=== PATIENT | female | born 1980 | race American Indian/Alaskan Native ===

== ENCOUNTER 2018-12-19 08:34 | Emergency (ER) | payer SELFPAY ==
[2018-12-19 08:48] VITALS: BP 116/71
[2018-12-19 09:16] LABS: Basophils % (Auto) 0.2 % (0.0-1.8); Eosinophils # (Auto) 0.2 K/mm3 (0.0-0.4); Eosinophils % (Auto) 2.6 % (0.0-4.3); Hematocrit 36.4 % (30.3-42.9); Hemoglobin 12.2 gm/dl (10.1-14.3); Lymphocytes # (Auto) 1.5 K/mm3 (1.2-5.4); Lymphocytes % (Auto) 20.1 % (13.4-35.0); Mean Corpuscular HGB Conc 34 % (30-34); Mean Corpuscular Volume 90 fl (79-97); Monocytes # (Auto) 0.5 K/mm3 (0.0-0.8); Monocytes % (Auto) 6.3 % (0.0-7.3); Platelet Count 288 K/mm3 (140-440); Red Blood Count 4.06 M/mm3 (3.65-5.03); Red Cell Distribution Width 13.1 % (13.2-15.2)
[2018-12-19] MEDS ORDERED: ZOFRAN IV ONE (09:29)
[2018-12-19] MEDS ORDERED: NACL 0.9% 1000 ML 1,000 ML IV ONE (09:29)
--- NOTE | 2018-12-19 09:32 | Emergency Department Report ---
ED General Adult HPI - General Chief complaint: Nausea/Vomiting/Diarrhea Stated complaint: DIARRHEA/FATIQUE/? Time Seen by Provider: 12/19/18 09:26 Source: patient Mode of arrival: Ambulatory Limitations: No Limitations - History of Present Illness Initial comments: Patient is 38 years old female with no significant past medical history. Patien t is 4 para 2 with one miscarriage. Patient presented to the ER complaining of abdominal pain, crampy in nature, started yesterday. Patient is also complaining of diarrhea. Patient denied any vaginal bleeding or vaginal discharge. Patient does not have any care so far. She stated that her last menstrual period was 08/31/2018. - Related Data Allergies Allergy/AdvReac Type Severity Reaction Status Date / Time No Known Allergies Allergy Unverified 12/19/18 08:48 ED Review of Systems ROS: Stated complaint: DIARRHEA/FATIQUE/? Other details as noted in HPI Comment: All other systems reviewed and negative Constitutional: denies: chills, fever Respiratory: denies: cough, shortness of breath, SOB with exertion Cardiovascular: denies: chest pain, palpitations Gastrointestinal: abdominal pain, nausea, diarrhea. denies: vomiting, constipation, hematemesis, melena, hematochezia Genitourinary: denies: urgency, discharge Neurological: denies: headache, weakness, numbness, paresthesias, confusion ED Past Medical Hx - Past Medical History Previous Medical History?: No - Surgical History Past Surgical History?: No - Social History Smoking Status: Never Smoker ED Physical Exam - General Limitations: No Limitations General appearance: alert, in no apparent distress - Head Head exam: Present: atraumatic, normocephalic, normal inspection - Eye Eye exam: Present: normal appearance - ENT ENT exam: Present: mucous membranes dry - Neck Neck exam: Present: normal inspection, full ROM. Absent: tenderness, meningism us, lymphadenopathy, thyromegaly - Respiratory Respiratory exam: Present: normal lung sounds bilaterally - Cardiovascular Cardiovascular Exam: Present: regular rate, normal rhythm, normal heart sounds - GI/Abdominal GI/Abdominal exam: Present: soft, normal bowel sounds. Absent: distended, tenderness, guarding, rebound, rigid, organomegaly, mass, bruit, pulsatile mass, hernia - Extremities Exam Extremities exam: Present: normal inspection, full ROM, normal capillary refill. Absent: pedal edema, calf tenderness - Back Exam Back exam: Present: normal inspection, full ROM. Absent: CVA tenderness (R), CVA tenderness (L), muscle spasm, paraspinal tenderness - Neurological Exam Neurological exam: Present: alert, oriented X3, CN II-XII intact, normal gait - Psychiatric Psychiatric exam: Present: normal mood - Skin Skin exam: Present: warm, intact, normal color ED Course Vital Signs 12/19/18 08:47 Temperature 98.2 F Pulse Rate 86 Respiratory 16 Rate Blood Pressure 116/71 O2 Sat by Pulse 100 Oximetry ED Medical Decision Making - Lab Data Result diagrams: 12/19/18 09:02 12/19/18 09:02 - Radiology Data Radiology results: report reviewed - Medical Decision Making Patient received Zofran and normal saline. Patient stated that she is feeling much better. Labs reviewed and is unremarkable except for positive test. Patient had an ultrasound showed 16 weeks intrauterine with no complication. Patient given my [employer] SUPERVISOR to follow-up. Patient advised to return to the ER if symptoms are not improved. Critical care attestation.: If time is entered above; I have spent that time in minutes in the direct care of this critically ill patient, excluding procedure time. ED Disposition Clinical Impression: Abdominal pain affecting , Nausea/vomiting in Disposition: DC-01 TO HOME OR SELFCARE Is pt being admited?: No Condition: Stable Instructions: Abdominal Pain in (ED), Acute Nausea and Vomiting (ED) Referrals: MATTHIEU FLORES MD [Primary Care Provider] - 3-5 Days [facility] [Provider Group] - 3-5 Days
[2018-12-19 09:37] LABS: Alanine Aminotransferase 10 units/L (7-56); Albumin 3.7 g/dL (3.9-5); BUN/Creatinine Ratio 6; Blood Urea Nitrogen 4 mg/dL (7-17); Calcium 8.9 mg/dL (8.4-10.2); Hemolysis Index 2
[2018-12-19 09:48] LABS: Bacteria,Urine 1+ /HPF (Negative); Bilirubin,Urine NEG (Negative); Blood,Urine NEG (Negative); Color,Urine Yellow (Yellow); Urobilinogen,Urine < 2.0 mg/dL (<2.0)
--- NOTE | 2018-12-19 11:57 | Ultrasound Report ---
OB ULTRASOUND >= 14 WEEKS FETUS INDICATION: abdominal pain, COMPARISON: None FINDINGS: A single gestation intrauterine is present with transverse head to maternal right presentat ion. The placenta is anterior, grade 0 and free of the cervical os. heart tones measure 146 bp m. Qualitative amniotic fluid volume is within normal limits. The cervix measures 4.6 cm and is closed. anatomical survey was not performed. Biparietal diameter is 3.5 cm which equals 16 weeks 5 days. Head circumference is 12.8 cm which equals 16 weeks 3 days. Abdominal circumference is 9.4 cm which equals 15 weeks 4 days. Femur length is 2.1 cm which equals 16 weeks 2 days. Overall estimated sonographic age is 16 weeks 2 days. EDC: 06/03/2019. HC/AC ratio: 1.36 Cephalic index: 86.7 Estimated weight 83 g. IMPRESSION: Viable, single intrauterine as described. No acute abnormality is detected. Signer Name: Yazan Roberts Jr, MD Signed: 12/19/2018 11:53 AM Workstation Name: [id number]
== END 2018-12-19 12:36 | disposition home or self-care (01) ==
LOC: ED 08:34
DX: O26.892 Other specified pregnancy related conditions, second trimester (principal); R10.2 Pelvic and perineal pain; O21.8 Other vomiting complicating pregnancy; Z3A.16 16 weeks gestation of pregnancy
CPT/HCPCS: 36415; 76805; 80053; 81001; 84702; 85025; 96361; 96374; 99284; J2405; J7030

== ENCOUNTER 2019-06-05 11:02 | Outpatient (CLI) | payer SELFPAY ==
[2019-06-05 11:42] VITALS: BP 120/81
[2019-06-05 12:07] LABS: Bilirubin,Urine NEG (Negative); Blood,Urine NEG (Negative); Color,Urine Yellow (Yellow); Urobilinogen,Urine < 2.0 mg/dL (<2.0)
[2019-06-05] MEDS ORDERED: ACETAMINOPHEN 500 MG TAB PO ONE (12:58)
[2019-06-05 13:05] LABS: Basophils % (Auto) 0.4 % (0.0-1.8); Eosinophils # (Auto) 0.1 K/mm3 (0.0-0.4); Eosinophils % (Auto) 1.7 % (0.0-4.3); Hematocrit 36.2 % (30.3-42.9); Hemoglobin 12.3 gm/dl (10.1-14.3); Lymphocytes # (Auto) 1.4 K/mm3 (1.2-5.4); Mean Corpuscular HGB Conc 34 % (30-34); Mean Corpuscular Volume 92 fl (79-97); Monocytes # (Auto) 0.6 K/mm3 (0.0-0.8); Monocytes % (Auto) 8.5 % (0.0-7.3); Platelet Count 250 K/mm3 (140-440); Red Blood Count 3.93 M/mm3 (3.65-5.03); Red Cell Distribution Width 13.5 % (13.2-15.2)
--- NOTE | 2019-06-05 14:33 | Ultrasound Report ---
US OB follow up INDICATION / CLINICAL INFORMATION: ALLEY/EFW. COMPARISON: 12/19/2018 FINDINGS: Viable single intrauterine gestation in cephalic presentation. heart rate 1 49 bpm The anterior placenta is free of the os with no evidence of abruption. The ALLEY is 12.3 measurements are consistent with a 39 week 4 day intrauterine gestation. Signer Name: Tirso Jamison MD Signed: 06/05/2019 2:28 PM Workstation Name: [id number]
[2019-06-05] MEDS: LACTATED RINGERS 1,000 ML IV SCH ×2 (14:43→14:44)
--- NOTE | 2019-06-05 17:04 | Ultrasound Report ---
ULTRASOUND BIOPHYSICAL PROFILE INDICATION / CLINICAL INFORMATION: well being. COMPARISON: None available. FINDINGS: BREATHING MOVEMENT = 2 GROSS BODY MOVEMENT = 2 TONE = 2 QUALITATIVE AMNIOTIC FLUID VOLUME = 2 TOTAL BIOPHYSICAL SCORE = 10/13 HEART RATE (beats per minute): 137 IMPRESSION: 1. biophysical profile = 10/13 Signer Name: Rohan Roblero MD Signed: 06/05/2019 5:00 PM Workstation Name: [id number]
[2019-06-05 17:34] LABS: Hepatitis C Virus Antibody Non-Reactive (NonReactive)
== END 2019-06-05 17:06 | disposition home or self-care (01) ==
LOC: TRG 11:02
PROVIDERS: ATTEND Obstetrics & Gynecology
DX: O26.853 Spotting complicating pregnancy, third trimester (principal); O42.92 Full-term premature rupture of membranes, unspecified as to length of time between rupture and onset of labor; O09.523 Supervision of elderly multigravida, third trimester; W19.XXXA Unspecified fall, initial encounter; Z3A.39 39 weeks gestation of pregnancy; Y93.89 Activity, other specified; Y92.89 Other specified places as the place of occurrence of the external cause; Y99.8 Other external cause status
CPT/HCPCS: 36415; 59025; 76816; 76819; 81001; 85025; 86592; 86706; 86762; 86803; 96360; 96361; J7120

== ENCOUNTER 2019-06-07 10:56 | Inpatient (IN) | payer OTHER ==
[2019-06-07] MEDS ORDERED: LACTATED RINGERS 1,000 ML ONE ×2 (11:24→16:35)
--- NOTE | 2019-06-07 12:14 | Ultrasound Report ---
LIMITED OBSTETRIC ULTRASOUND HISTORY: Assess fluid. COMPARISON: 06/05/2019 TECHNIQUE: Limited OB ultrasound performed. FINDINGS: Gestation: Lai Monochorionic monoamniotic intrauterine fetus. Placenta: anterior location and free of the internal cervical os. Presentation: Transverse with the head to maternal left. Amniotic Fluid Index: 14.4 cm Cardiac activity is regular rate at149 beats per minute. A survey was not performed. Estimated gestational age based on clinical history/previous ultrasound: 39 weeks 5 days with SONNY 06/08 IMPRESSION: 1. Single living intrauterine at approximately 39 weeks 5 days with no significant abnormal ity. 2. Normal amniotic fluid volume. Signer Name: Ranjeet Spencer MD Signed: 06/07/2019 12:10 PM Workstation Name: [id number]
[2019-06-07] MEDS ORDERED: FAMOTIDINE 20 MG/2 ML INJ IV ONE ×2 (12:52→12:54)
[2019-06-07] MEDS ORDERED: BICITRA ORAL LIQD 30ML PO ONE ×2 (12:52→12:54)
[2019-06-07] MEDS ORDERED: METOCLOPRAMIDE 10 MG/2 ML INJ IV ONE ×2 (12:52→12:54)
--- NOTE | 2019-06-07 12:58 | History and Physical Report ---
History of Present Illness Date of examination: 06/07/19 (Pt for rpt for malpresentation and labor) Date of admission: 06/07/2019 Chief complaint: I've been having contractions and I'm leaking fluids. History of present illness: EDC Confirmation: 06/10/2019 Gestational Age: 29 5/7 weeks Past History : 3 Term Births: 2 Premature Births: 0 Living Children: 2 Para: 2 Mult. Births: 0 Prev : 1 Prev. attempt? 0 Aborta: 0 Elect. Ab: 0 Spont. 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 ETOH/Drugs/smoking Infection History Hx of STD: none HIV Risk Eval: low risk Hepatitis B Risk Eval: low risk Genetic History ADVANCED MATERNAL AGE Congenital Heart Defect: Mom: no Dad: no Javier Disease: Mom: no Dad: no Thalassemia Mom: no Dad: no Neural Tube Defect Mom: no Dad: no Down's Syndrome Mom: no Dad: no Lenny-Sachs Mom: no Dad: no Sickle Cell Disease/Trait Mom: no Dad: no Hemophilia Mom: no Dad: no Muscular Dystrophy Mom: no Dad: no Cystic Fibrosis Mom: no Dad: no [place] Chorea Mom: no Dad: no Mental Retardation Mom: no Dad: no Fragile X Mom: no Dad: no Other Genetic/Chromosomal Disorder Mom: no Dad: no Child w/other defect Mom: no Dad: no Enviromental Exposures Xray Exposure: no Medication, drug, or alcohol use since LMP: no Chemical/Other Exposure: no Exposure to Cat Liter: no Hx of Parvovirus (Fifth Disease): no Occupational Exposure to Children: none Current Allergies (reviewed today): No known allergies Past History Past Medical History: no pertinent history Past Surgical History: section Family/Genetic History: none Social history: - Obstetrical History Expected Date of Delivery: 06/10/19 Actual Gestation: 39 Week(s) 4 Day(s) : 3 Para: 2 Hx # Term Pregnancies: 2 Number of Pregnancies: 0 Spontaneous Abortions: 0 Induced : 0 Number of Living Children: 2 Medications and Allergies Allergies Allergy/AdvReac Type Severity Reaction Status Date / Time No Known Allergies Allergy Verified 06/05/19 11:23 Active Meds: Active Medications Citric Acid/Sodium Citrate (Bicitra) 30 ml PO ONCE ONE Stop: 06/07/19 12:55 Famotidine (Pepcid) 20 mg IV ONCE ONE Stop: 06/07/19 12:55 Oxytocin/Sodium Chloride (Pitocin/Ns 20 Unit/1000ml Drip) 20 units in 1,000 mls @ 0 mls/hr IV TITR COSMO Lactated Ringer's (Lactated Ringers) 1,000 mls @ 2,250 mls/hr IV PREOP COSMO Stop: 06/08/19 13:27 Cefazolin Sodium (Ancef/Sterile Water 2 Gm/20 Ml) 2 gm in 20 mls @ 80 mls/hr IV PREOP NR; Protocol Metoclopramide HCl (Reglan) 10 mg IV ONCE ONE Stop: 06/07/19 12:55 Review of Systems All systems: negative - Vital Signs Vital signs: Vital Signs Pulse BP 91 H 117/77 06/07/19 11:17 06/07/19 11:17 Temp Pulse Resp BP Pulse Ox 98.6 F 81 20 117/77 98 06/07/19 11:45 06/07/19 12:55 06/07/19 11:45 06/07/19 11:45 06/07/19 12:55 - Physical Exam Breasts: Positive: deferred Cardiovascular: Regular rate, Normal S1, Normal S2 Lungs: Positive: Normal air movement Abdomen: Positive: normal appearance, soft, normal bowel sounds. Negative: distention, tenderness Genitourinary (Female): Positive: normal external genitalia, normal perenium Vulva: both: normal Vagina: Positive: normal moisture. Negative: discharge Cervix: Negative: lesion, discharge Uterus: Positive: normal size, normal contour Anus/Rectum: Positive: normal perianal skin, heme negative. Negative: rectal mass, hemorrhoids Extremities: Positive: normal Deep Tendon Reflex Grade: Normal +2 - Obstetrical FHR: auscultation normal, category 1 Uterine Contraction Monitor Mode: External Cervical Dilatation: 0.5 (No Evidence of SROM) Cervical Effacement Percentage: 50 station: -3 Uterine Contraction Pattern: Regular Uterine Tone Measurement Phase: Resting Uterine Contraction Intensity: Mild Results Result Diagrams: 06/07/19 13:00 All other labs normal. GBS UNKNOWN Syphillis NR Hep B NR Hep C NR Rubella IMMUNE H/H 12.3/36.2 (06/05/2019) Platelets 250 (06/05/2019) Assessment and Plan A: 38 y.o. @ term with limited care, presented to triage for r/o early labor. She also stated that she thought her water had broken earlier this AM. SROM was ruled out. Category 1 strip, Pt having some contractions. IV fluids started. Cervical exam 0.5/50/-3. Ultrasound for ALLEY WNL, but baby in transverse position. Spoke with Dr. Luna and decision made to do repeat c- section this afternoon. primer inserting machine adjuster, and supervisor drawing aware and pt prepped for rpt c- section.
[2019-06-07] MEDS ORDERED: ceFAZolin/Water 2 GM/20 ML 2 GM/20 ML SYRINGE IV NR ×2 (13:00)
[2019-06-07] MEDS ORDERED: OXYTOCIN 20 UNIT/1000ML DRIP 20 UNITS/1,000 ML BAG IV SCH ×3 (13:00→18:00)
[2019-06-07] MEDS ORDERED: LACTATED RINGERS 1,000 ML IV SCH ×2 (13:00)
--- NOTE | 2019-06-07 13:22 | Anesthesia Consultation ---
Anesthesia Consult and Med Hx Date of service: 06/07/19 - Airway Anesthetic Teeth Evaluation: Good ROM Head & Neck: Adequate Mental/Hyoid Distance: Adequate Mallampati Class: Class II Intubation Access Assessment: Probably Good - Pre-Operative Health Status ASA Pre-Surgery Classification: ASA2 Proposed Anesthetic Plan: Epidural, Spinal - Pulmonary Hx Asthma: No - Cardiovascular System Hx Hypertension: No - Central Nervous System Hx Seizures: No Hx Psychiatric Problems: No - Endocrine Hx Renal Disease: No Hx Hypothyroidism: No Hx Hyperthyroidism: No - Hematic Hx Anemia: No Hx Sickle Cell Disease: No - Other Systems Hx Alcohol Use: No - Additional Comments Anesthesia Medical History Comments: uterine scar, malpresentation
[2019-06-07 13:39] LABS: Basophils % (Auto) 0.2 % (0.0-1.8); Eosinophils # (Auto) 0.2 K/mm3 (0.0-0.4); Eosinophils % (Auto) 1.9 % (0.0-4.3); Hematocrit 36.4 % (30.3-42.9); Hemoglobin 12.5 gm/dl (10.1-14.3); Lymphocytes # (Auto) 1.6 K/mm3 (1.2-5.4); Mean Corpuscular HGB Conc 35 % (30-34); Mean Corpuscular Volume 93 fl (79-97); Monocytes # (Auto) 0.7 K/mm3 (0.0-0.8); Monocytes % (Auto) 9.4 % (0.0-7.3); Platelet Count 226 K/mm3 (140-440); Red Blood Count 3.93 M/mm3 (3.65-5.03); Red Cell Distribution Width 13.6 % (13.2-15.2)
[2019-06-07] MEDS ORDERED: PHENYLEPHRINE/NS 1,000 MCG/10 ML SYRINGE (OR USE) IV ONE (14:30)
[2019-06-07] MEDS ORDERED: DEXMEDETOMIDINE 200 MCG/2 ML VIAL IV ONE (16:01)
[2019-06-07] MEDS ORDERED: SODIUM CHLORIDE 0.9% IRR 1,500 ML BOTTLE IR ONE (16:20)
[2019-06-07] MEDS ORDERED: ceFAZolin/STERILE WATER 2 GM/20 ML SYRINGE IV ONE (16:20)
[2019-06-07] MEDS ORDERED: WATER FOR IRRIG STERILE 1,500 ML BOTTLE IR ONE (16:20)
[2019-06-07] MEDS ORDERED: OXYTOCIN 10 UNIT/1 ML INJ ONE (16:53)
--- NOTE | 2019-06-07 17:21 | Operative Report ---
Operative Report Operative Report: Date of procedure: 06/07/2019 Pre-operative diagnosis: 39-5/7 weeks gestation No care transverse lie Previous section Latent labor Post-operative diagnosis: Same plus vertex presentation Procedure name(s): Repeat low transverse section via Pfannenstiel skin incision Surgeon: Dr. Luna Retail Event Coordinator: TIGIST Anesthesia: Spinal EBL: 800 mL Urine output: 150 mL of clear urine out at the end of the procedure Fluids: 1500 mL Findings: Liveborn female infant 7 pounds 1 ounce Apgars of 8 and 9 at 1 and 5 minutes Grossly normal fallopian tubes and ovaries bilaterally Minimal adhesions Spongy texture of uterus consistent with possible adenomyosis Well-developed lower uterine segment Nuchal cord x2 easily reduced. Body cord x1 easily reduced Indications: Patient presents to triage after having no care for the second day this week complaining of contractions and leaking of fluid. Patient was observed not to have spontaneous rupture of membranes but was noted to have continuous contractions. Patient was minimally dilated but was noted to be and transverse lie on ultrasound. Decision was made at this time to proceed with repeat section. Procedure: Patient was taking to the operating room. Patient was then prepped and draped in sterile fashion after anesthesia was found to be adequate. A low transverse skin incision was made with the scalpel through previous incisional scar and carried down to the underlying layer of fascia with the Bovie. The fascia was then incised in the midline and this incision was extended bilaterally with the Bovie. The superior aspect of the fascia was grasped with Irais clamps tented upward and dissected off of the anterior rectus muscles with the scalpel. In similar fashion the inferior aspect of the fascia was grasped with Irais clamps tented upward and dissected off of the anterior rectus muscles. The rectus muscles were then sharply divided in the midline. The peritoneum was identified and entered into sharply. The Noel retractor was placed the bladder blade was placed. A lower transverse uterine incision was made with the scalpel and extended bilaterally with the bandage scissors. Artificial rupture of membranes was performed yielding [clear amniotic fluid]. The infant's head was then delivered atraumatically. The anterior shoulder and rest of infant delivered without difficulty. The double nuchal cord was easily reduced. The umbilical cord was clamped x2. The cord was cut. The was then placed in sterile bassinet. The cord blood was collected. The placenta was manually extracted in its entirety. The uterus was exteriorized and cleared of all clots and debris. The uterine incision was closed using 0 Vicryl in a running locking fashion. A second imbricating layer of the same suture was then created. The posterior cul-de-sac was copiously irrigated. The uterus was returned to the abdomen. The gutters were also irrigated. Surgicel was placed along the uterine incision with excellent hemostasis noted. The anterior rectus muscles were reapproximated using 2-0 Vicryl. The anterior rectus fascia was reapproximated using 0 Vicryl in a running fashion. The subcuticular fat was reapproximated using 2-0 Vicryl in a running fashion. The skin was reapproximated with 4-0 Monocryl in a subcuticular stitch. The patient tolerated the procedure well. Sponge lap and needle counts were all correct x3. Patient was taken to the recovery room awake and in stable condition.
[2019-06-07] MEDS ORDERED: ONDANSETRON 4 MG/2 ML INJ IV PRN (17:22)
[2019-06-07] MEDS ORDERED: LANOLIN/ZINC/DIMETHICONE (LANSINOH) 7 GM TP PRN (17:22)
[2019-06-07] MEDS ORDERED: NALOXONE 0.4 MG/1 ML INJ IV PRN (17:22)
[2019-06-07] MEDS ORDERED: WITCH HAZEL/ GLYCERIN PAD TP PRN (17:22)
[2019-06-07] MEDS ORDERED: D5W/LACTATED RINGERS 1,000 ML IV SCH (18:00)
[2019-06-07] MEDS: KETOROLAC 30 MG/1 ML INJ IV PRN (21:54)
[2019-06-07] MEDS: ceFAZolin/NS 1 GM/50 ML 1 GM/50 ML BAG IV SCH (22:06)
[2019-06-08] MEDS ORDERED: MORPHINE 2 MG/1 ML INJ IV ONE (00:35)
[2019-06-08] MEDS: KETOROLAC 30 MG/1 ML INJ IV PRN (03:08)
[2019-06-08 04:13] LABS: Hematocrit 32.9 % (30.3-42.9); Hemoglobin 11.3 gm/dl (10.1-14.3)
[2019-06-08] MEDS: ceFAZolin/NS 1 GM/50 ML 1 GM/50 ML BAG IV SCH (05:30)
[2019-06-08] MEDS: HYDROcodone/ACETAMINOPHEN 5-325 MG TAB PO PRN ×3 (05:32→21:09)
--- NOTE | 2019-06-08 07:33 | Progress Note ---
Assessment and Plan repeat C/S at 39 wks for malpresentation and labor. Pt sitting in bed quietly holding . Rates pain 6/10 but is controlled with pain medication. VSSAF. Short period of HR ranging between 90-110's. Post-op H/H . ABD dressing dry, clean, and intact. Dsg to be removed today by RN. Ambulating and voiding without difficulty. Denies flatus. Fundus firm at umbilicus. Light vaginal bleeding. Breast and bottle feeding successfully. Pt states she desired BTL as primary contraception but did not notify provider in a timely manner. Undecided on alternative PP contraception at this time. P: Continue PP pathway. - Patient Problems (1) delivery delivered Current Visit: Yes Status: Acute Subjective - Subjective Date of service: 06/08/19 Principal diagnosis: 12hrs s/p repeat C/S at 39 wks Patient reports: appetite normal, voiding normally, pain well controlled, ambulating normally, no flatus : doing well Objective - Vital Signs Latest vital signs: Vital Signs Temp Pulse Resp BP BP Pulse Ox 06/08/19 06:32 16 06/08/19 05:32 18 06/08/19 03:38 16 06/08/19 03:08 18 06/08/19 02:26 98.2 F 72 18 117/70 99 06/08/19 01:11 18 06/08/19 00:41 18 06/07/19 22:24 98.0 F 78 18 116/70 100 06/07/19 21:54 18 06/07/19 18:45 97.9 F 75 20 107/65 99 06/07/19 18:15 97.9 F 64 23 113/85 100 06/07/19 18:00 68 20 103/54 99 06/07/19 17:45 77 22 108/64 99 06/07/19 17:30 83 21 104/60 98 06/07/19 17:25 83 17 94/54 99 06/07/19 17:20 99.4 F 99 H 14 95/55 98 06/07/19 16:54 100 H 98 06/07/19 16:49 97 H 98 06/07/19 16:44 111 H 97 06/07/19 16:41 98 H 118/57 06/07/19 16:39 102 H 98 06/07/19 14:44 94 H 131/78 97 06/07/19 14:43 98.0 F 06/07/19 13:35 71 99 06/07/19 13:30 75 100 06/07/19 13:25 83 100 06/07/19 13:20 81 100 06/07/19 13:15 92 H 98 06/07/19 13:10 83 99 06/07/19 13:05 84 96 06/07/19 13:00 80 97 06/07/19 12:55 81 98 06/07/19 12:50 66 98 06/07/19 12:45 81 98 06/07/19 12:40 69 98 06/07/19 12:35 72 98 06/07/19 12:30 63 98 06/07/19 12:25 72 97 06/07/19 12:20 75 97 06/07/19 12:15 80 97 06/07/19 12:10 74 97 06/07/19 12:08 71 94 06/07/19 12:05 83 98 06/07/19 12:00 71 97 06/07/19 11:55 68 98 06/07/19 11:50 82 99 06/07/19 11:47 74 93 06/07/19 11:45 98.6 F 73 20 117/77 96 06/07/19 11:17 91 H 117/77 Intake and Output 06/07/19 06/08/19 06/08/19 22:59 06:59 14:59 Intake Total 1650 860 Output Total 250 1150 Balance 1400 -290 Intake: IV 1650 ANCEF/NS 1 GM/50 ML 1 gm 50 In 50 ml @ 100 mls/hr IV Q8H [facility] Rx#:[id number] Oral 380 Intake, Free Water 480 Output: Urine 250 1150 Indwelling Catheter 1150 Other: Total, Intake Amount 380 Total, Output Amount 450 Estimated Blood Loss 800 - Exam Cardiovascular: Present: Regular rate, Normal S1, Normal S2 Lungs: Present: Clear to auscultation, Normal air movement Abdomen: Present: normal appearance, soft, normal bowel sounds Uterus: Present: normal, firm, fundal height at umbilicus Extremities: Present: normal Deep Tendon Reflex Grade: Normal +2 Incision: Present: normal, dry, intact (ABD dressing in place) - Labs Labs: Abnormal lab results 06/07/19 Range/Units 13:00 MCHC 35 H (30-34) % [place] % (Auto) 9.4 H (0.0-7.3) %
[2019-06-08] MEDS: IBUPROFEN 800 MG TAB PO PRN ×3 (09:35→23:48)
--- NOTE | 2019-06-08 10:05 | Progress Note ---
Subjective Date of service: 06/08/19 Principal diagnosis: 12hrs s/p repeat C/S at 39 wks Interval history: 1st POD after Patient is comfortable, ambulates well. Has not passed gas yet. Some pain is mostly controlled with pain meds. No residual neurological deficit. Site of spinal/epidural is intact. No anesthesia complications Objective - Constitutional Vitals: Vital Signs - 12hr 06/07/19 06/08/19 06/08/19 22:24 00:41 01:11 Temperature 98.0 F Pulse Rate 78 Respiratory 18 18 18 Rate Blood Pressure 116/70 O2 Sat by Pulse 100 Oximetry 06/08/19 06/08/19 06/08/19 02:26 03:08 03:38 Temperature 98.2 F Pulse Rate 72 Respiratory 18 18 16 Rate Blood Pressure 117/70 O2 Sat by Pulse 99 Oximetry 06/08/19 06/08/19 06/08/19 05:32 06:32 06:53 Temperature 98.2 F Pulse Rate 72 Respiratory 18 16 18 Rate Blood Pressure 126/80 O2 Sat by Pulse 95 Oximetry 06/08/19 08:04 Temperature 98.2 F Pulse Rate 64 Respiratory 20 Rate Blood Pressure 107/64 O2 Sat by Pulse 98 Oximetry - Labs CBC & Chem 7: 06/08/19 03:42 Labs: Abnormal lab results 06/07/19 Range/Units 13:00 MCHC 35 H (30-34) % [place] % (Auto) 9.4 H (0.0-7.3) %
[2019-06-08] MEDS ORDERED: TETANUS,DIPH,PERTUSS(ACELL) VACCINE 0.5 ML SYRINGE IM ONE (17:23)
[2019-06-09] MEDS: HYDROcodone/ACETAMINOPHEN 5-325 MG TAB PO PRN ×2 (05:27→13:20)
[2019-06-09 08:19] VITALS: BP 117/82
--- NOTE | 2019-06-09 10:05 | Discharge Summary ---
Providers - Providers Date of Admission: 06/07/19 12:56 Date of discharge: 06/09/19 (Pt desires to go home. ) Attending physician: YUNIEL VAZQUEZ Primary care physician: YUNIEL VAZQUEZ Hospitalization Reason for admission: other (Early labor and malpresentation of fetus) Delivery: Procedure: repeat low transverse Episiotomy: none Laceration: none Incision: normal, dry, intact Other procedures: none complications: none Discharge diagnosis: IUP at term delivered baby: female Hospital course: S: Pt doing well. Ambulating, passing flatus, and voiding okay. BC: BTL. Desires to go home. O: VSS. Fundus firm with minimal bleeding. Incision open to air. Steri strips intact. No s/sx of infection and no drainage noted. I&O's adaquate. H/H 11.3/32.9. A: 38 y.o. s/p rpt , no care. Doing well, stable for discharge home. P: Please schedule a incision check in 1 week. Please schedule 4 week visit. Condition at discharge: Good Disposition: DC-01 TO HOME OR SELFCARE Plan - Discharge Medications Prescriptions: Ibuprofen [Motrin 800 MG tab] 800 mg PO Q8HR PRN #30 tablet PRN Reason: Pain, Moderate (4-6) oxyCODONE /ACETAMINOPHEN [Percocet 5/325] 1 tab PO Q4HR #30 tab - Provider Discharge Summary Activity: routine, no sex for 6 weeks, no heavy lifting 4 weeks, no strenuous exercise Diet: routine Instructions: routine Additional instructions: [] Smoking cessation referral if applicable(refer to patient education folder for contact #) [] Refer to [facility] Booklet Call your doctor immediately for: * Fever > 100.5 * Heavy vaginal bleeding ( >1 pad per hour) * Severe persistent headache * Shortness of breath * Reddened, hot, painful area to leg or breast * Drainage or odor from incision. * Keep incision clean and dry at all times and follow doctor's instructions regarding bathing/showering - Follow up plan Follow up: YUNIEL VAZQUEZ MD [Primary Care Provider] - 7 Days (Congratulations!! Please schedule incision check in 1 week. Please schedule a visit in 4 weeks. )
== END 2019-06-09 17:20 | disposition home or self-care (01) | DRG 788 ==
LOC: TRG 10:56 → APU 12:56 → OB 17:04
PROVIDERS: ADMIT Obstetrics & Gynecology; ATTEND Obstetrics & Gynecology
PROC: 10D00Z1 Extraction of Products of Conception, Low, Open Approach (ICD-10-PCS; principal; 2019-06-07)
PROC: 3E0234Z Introduction of Serum, Toxoid and Vaccine into Muscle, Percutaneous Approach (ICD-10-PCS; 2019-06-08)
DX: O34.211 Maternal care for low transverse scar from previous cesarean delivery (principal); O32.8XX0 Maternal care for other malpresentation of fetus, not applicable or unspecified; O69.81X0 Labor and delivery complicated by cord around neck, without compression, not applicable or unspecified; Z3A.39 39 weeks gestation of pregnancy; Z37.0 Single live birth; Z23 Encounter for immunization
CPT/HCPCS: 36415; 59025; 76815; 85014; 85018; 85025; 86592; 86706; 86762; 86850; 86900; 86901; 87806; 88307; 96360; G0378; J0690; J1885; J2270; J2370; J2590; J2765; J3490; J7120; J7121